=== PATIENT | female | born 1960 | race Caucasian/White ===

== ENCOUNTER 2017-08-10 11:01 | Outpatient (CLI) | payer OTHER | END 2017-08-10 11:05 | disposition home or self-care (01) | LOC: SONOGRAMA 11:01 | DX: N84.0 Polyp of corpus uteri (principal) ==

== ENCOUNTER 2017-11-02 08:07 | Outpatient (CLI) | payer OTHER | END 2017-11-02 08:10 | disposition home or self-care (01) | LOC: MRI 08:07 | DX: M54.6 Pain in thoracic spine (principal) | CPT/HCPCS: 78315; A9503 ==